=== PATIENT | female | born 1940 | race Caucasian/White ===

== ENCOUNTER 2018-02-26 07:16 | Day surgery (SDC) | payer MEDICARE, OTHER ==
[2018-02-26] MEDS ORDERED: Midazolam 1 MG/ML 2 ML SDV ONE (07:48)
[2018-02-26] MEDS ORDERED: fentaNYL 100 MCG/2 ML SDV ONE (07:48)
[2018-02-26] MEDS ORDERED: Propofol 200 MG/20 ML SDV ONE (07:48)
[2018-02-26] MEDS ORDERED: Sodium Chloride 0.9% 1,000 ML IV SCH (08:00)
[2018-02-26 11:37] VITALS: BP 134/59
--- NOTE | 2018-02-26 13:20 | OR ---
DATE OF PROCEDURE: 02/26/2018 PROCEDURE: Colonoscopy. FINDINGS: Transverse colon polyp, approximately 5 mm, completely removed using cold biopsy forceps. COMPLICATIONS: None. 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 PREOPERATIVE DIAGNOSIS: Screening colonoscopy. POSTOPERATIVE DIAGNOSIS: Screening colonoscopy. RISKS: Risks, benefits, alternatives, and limitations including, but not limited to infection, bleeding, and perforation were explained to the patient, who wished to proceed. PROCEDURE IN DETAIL: The patient was placed in left lateral decubitus position. Digital rectal exam was performed without abnormality. The scope was introduced and advanced atraumatically to the ileocecal valve. The scope was brought back to the ascending, transverse, descending colon, and retroflexed. No abnormalities were noted, except for in the transverse colon, a 5-mm polyp which was completely removed using cold biopsy forceps. The patient tolerated the procedure well. Irineo Dooley MD /[id number]
== END 2018-02-26 11:30 | disposition home or self-care (01) ==
LOC: JP.SDS 07:16
PROVIDERS: ATTEND Surgery
DX: Z12.11 Encounter for screening for malignant neoplasm of colon (principal); D12.3 Benign neoplasm of transverse colon; F17.200 Nicotine dependence, unspecified, uncomplicated; Z88.8 Allergy status to other drugs, medicaments and biological substances
CPT/HCPCS: 45380; J2250; J2704; J3010; J7030; 88305

== ENCOUNTER 2020-01-06 06:14 | Day surgery (SDC) | payer MEDICARE, OTHER ==
[2020-01-06] MEDS ORDERED: Sodium Chloride 0.9% 10 ML Syringe FLUSH PRN (07:30)
[2020-01-06 08:56] VITALS: BP 152/83; PULSE 66
--- NOTE | 2020-01-06 09:52 | OR ---
DATE OF PROCEDURE: 01/06/2020 SURGEON: Xenia Varghese MD POSTOPERATIVE CARE: Postoperative care will be provided mainly at the [address] [place] [address] [facility] in conjunction with [facility]. PREOPERATIVE DIAGNOSIS: Cataract, right eye. POSTOPERATIVE DIAGNOSIS: Cataract, right eye. PROCEDURE: Phacoemulsification with intraocular lens placement, right eye. ANESTHESIA: Topical and intracameral. ESTIMATED BLOOD LOSS: Minimal. COMPLICATIONS: None. PATHOLOGY SPECIMENS: None. SURGICAL FINDINGS: None. INDICATION FOR PROCEDURE: The patient is a 79-year-old female with history of a visually significant cataract in the right eye, which interfered with activities of daily living. This consisted of a nuclear sclerosis cataract. Following careful discussion of the risks, benefits and alternatives to cataract extraction with intraocular lens placement including blindness and , the patient elected to proceed, and informed, written consent was obtained prior to the procedure. DESCRIPTION OF THE PROCEDURE: The patient was previously identified, and a rere placed above the right eye. All sources, including the patient, indicated that the right eye was the correct eye. The patient was subsequently taken to the operating room where standard monitors were applied. The patient was then prepped and draped in the usual sterile fashion for ophthalmic surgery. Attention was first directed at the 12 o'clock position where a paracentesis port was fashioned. Shugar solution followed by Viscoat was instilled into the eye. Attention was then directed to the 8:30 position where a triplanar incision was made in a near-clear manner using a keratome. A continuous capsulorrhexis was then made using a combination of the cystotome and Utrata forceps. Hydrodissection was achieved using a balanced salt solution, and the lens rotated nicely. Phacoemulsification was then done using a modified [id number] technique without complication. Phaco time was CDE. The remaining cortex was removed using the irrigation/aspiration handpiece. Provisc was then instilled into the eye. A Technis lens, model [id number], at 20.0 Diopters was then placed in the capsular bag using an Lanett injector. The remaining viscoelastic was removed using the irrigation/aspiration forceps. All wounds were then checked and found to be watertight. The lid speculum and drapes were removed. Maxitrol ointment was placed in the patient's right eye, and the eye was shielded. The patient tolerated the procedure well. The patient was instructed to follow up tomorrow. All needle and sponge counts were correct at the end of the procedure. Xenia Varghese MD /[id number] MTDD
== END 2020-01-06 09:04 | disposition home or self-care (01) ==
LOC: JP.SDS 06:14
PROVIDERS: ATTEND Ophthalmology
DX: H25.11 Age-related nuclear cataract, right eye (principal); I10 Essential (primary) hypertension; Z88.8 Allergy status to other drugs, medicaments and biological substances
CPT/HCPCS: 66984; V2632

== ENCOUNTER 2020-02-03 08:52 | Day surgery (SDC) | payer MEDICARE, OTHER ==
[2020-02-03] MEDS ORDERED: Sodium Chloride 0.9% 10 ML Syringe FLUSH ONE (09:30)
[2020-02-03 10:12] VITALS: BP 150/78; PULSE 64
--- NOTE | 2020-02-03 16:21 | OR ---
DATE OF PROCEDURE: 02/03/2020 SURGEON: Xenia Varghese MD POSTOPERATIVE CARE: Postoperative care will be provided mainly at the [address] [place] [address] Eye [facility] in conjunction with [facility]. PREOPERATIVE DIAGNOSIS: Cataract, left eye. POSTOPERATIVE DIAGNOSIS: Cataract, left eye. PROCEDURE: Phacoemulsification with intraocular lens placement, left eye. ANESTHESIA: Topical and intracameral. ESTIMATED BLOOD LOSS: Minimal. COMPLICATIONS: None. PATHOLOGY SPECIMENS: None. SURGICAL FINDINGS: None. INDICATION FOR PROCEDURE: The patient is a 79-year-old female with history of a visually significant cataract in the left eye, which interfered with activities of daily living. This consisted of a nuclear sclerosis cataract. Following careful discussion of the risks, benefits and alternatives to cataract extraction with intraocular lens placement including blindness and , the patient elected to proceed, and informed, written consent was obtained prior to the procedure. DESCRIPTION OF THE PROCEDURE: The patient was previously identified, and a rere placed above the left eye. All sources, including the patient, indicated that the left eye was the correct eye. The patient was subsequently taken to the operating room where standard monitors were applied. The patient was then prepped and draped in the usual sterile fashion for ophthalmic surgery. Attention was first directed at the 12 o'clock position where a paracentesis port was fashioned. Shugar solution followed by Viscoat was instilled into the eye. Attention was then directed to the 8:30 position where a triplanar incision was made in a near-clear manner using a keratome. A continuous capsulorrhexis was then made using a combination of the cystotome and Utrata forceps. Hydrodissection was achieved using a balanced salt solution, and the lens rotated nicely. Phacoemulsification was then done using a modified itzmgu-[id number] technique without complication. Phaco time was 7.15 CDE. The remaining cortex was removed using the irrigation/aspiration handpiece. Provisc was then instilled into the eye. A Technis lens, model [id number], at 20.5 diopters was then placed in the capsular bag using an Borden injector. The remaining viscoelastic was removed using the irrigation/aspiration forceps. All wounds were then checked and found to be watertight. The lid speculum and drapes were removed. Maxitrol ointment was placed in the patient's left eye, and the eye was shielded. The patient tolerated the procedure well. The patient was instructed to follow up tomorrow. All needle and sponge counts were correct at the end of the procedure. Xenia Varghese MD /[id number]
== END 2020-02-03 10:15 | disposition home or self-care (01) ==
LOC: JP.SDS 08:52
PROVIDERS: ATTEND Ophthalmology
DX: H25.12 Age-related nuclear cataract, left eye (principal)
CPT/HCPCS: 66984; V2632

== ENCOUNTER 2021-12-17 06:44 | Day surgery (SDC) | payer MEDICARE, OTHER ==
[~2021-12-17 06:44] MED LIST: Dextrose 5%-Lactated Ringers 1,000 ML IV SCH; ceFAZolin 2 GM in Sodium Chloride 0.9% 100 ML IV ONE
[2021-12-17] MEDS ORDERED: Bupivacaine 0.5% 50 ML MDV ONE (06:55)
[2021-12-17] MEDS ORDERED: Lidocaine 1% with EPINEPHrine 1:100,000 50 ML MDV ONE (06:56)
[2021-12-17] MEDS ORDERED: Acetaminophen 500 MG Tab PO ONE (07:00)
[2021-12-17] MEDS ORDERED: fentaNYL 100 MCG/2 ML SDV ONE (07:08)
[2021-12-17] MEDS ORDERED: Propofol 200 MG/20 ML SDV ONE (07:09)
[2021-12-17] MEDS ORDERED: Midazolam 1 MG/ML 2 ML SDV ONE (07:09)
[2021-12-17] MEDS ORDERED: ceFAZolin 2 GM in Premix Bag 1 BAG IV ONE (07:15)
[2021-12-17] MEDS ORDERED: Ondansetron 4 MG/2 ML SDV ONE (08:12)
[2021-12-17] MEDS ORDERED: Ondansetron 4 MG/2 ML SDV IVPUSH ONE (09:30)
[2021-12-17 09:57] VITALS: BP 168/69; PULSE 65
== END 2021-12-17 10:11 | disposition home or self-care (01) ==
LOC: JP.SDS 06:44
PROVIDERS: ATTEND Surgery
DX: C67.1 Malignant neoplasm of dome of bladder (principal); I10 Essential (primary) hypertension; E78.5 Hyperlipidemia, unspecified; R73.9 Hyperglycemia, unspecified
CPT/HCPCS: 77001; C1788; J0690; J1642; J2250; J2405; J2704; J3010; J3490

== ENCOUNTER 2022-04-27 19:51 | Inpatient (IN) | payer MEDICARE, OTHER ==
[2022-04-27] MEDS ORDERED: Sodium Chloride 0.9% 1,000 ML IV SCH (21:30)
[2022-04-27 22:17] LABS: ESTIMATED GFR 32 mL/min (>60)
[2022-04-27 23:18] LABS: CORONAVIRUS COVID-19 NAA NEGATIVE (NEGATIVE)
[2022-04-28] MEDS ORDERED: Water For Injection, Sterile 20 ML ONE (00:14)
[2022-04-28] MEDS ORDERED: cefTRIAXone 2 GM in Sodium Chloride 0.9% 50 ML IV SCH (01:00)
[2022-04-30] MEDS ORDERED: Sodium Chloride 0.9% 10 ML SDV IV PRN (16:11)
[2022-04-30] MEDS ORDERED: Acetaminophen 500 MG Tab PO PRN (16:16)
[2022-04-30] MEDS ORDERED: Docusate Sodium 100 MG Cap PO PRN (16:16)
[2022-04-30] MEDS ORDERED: Magnesium Hydroxide 400 MG/5 ML Susp 30 ML Cup PO PRN (16:16)
[2022-04-30] MEDS ORDERED: Calcium Carbonate 500 MG Tab.Chew PO PRN (16:17)
[2022-04-30] MEDS ORDERED: Ondansetron 4 MG/2 ML SDV IVPUSH PRN (16:17)
[2022-04-30] MEDS ORDERED: Ondansetron 4 MG Tab.DIS PO PRN (16:18)
[2022-04-30] MEDS ORDERED: Sodium Chloride 0.9% 10 ML Syringe IV PRN (16:35)
[2022-04-30] MEDS: Ciprofloxacin 500 MG Tab PO SCH (19:13)
[2022-04-30] MEDS: Magnesium Oxide 400 MG Tab PO SCH (20:03)
[2022-04-30] MEDS ORDERED: Lisinopril 20 MG Tab PO SCH (21:00)
[2022-04-30] MEDS ORDERED: atorvaSTATin 10 MG Tab PO SCH (21:00)
[2022-05-01 07:54] VITALS: BP 161/70; PULSE 87
[2022-05-01] MEDS: Ciprofloxacin 500 MG Tab PO SCH (07:56)
[2022-05-01] MEDS ORDERED: Rivaroxaban 10 MG Tab PO SCH (08:00)
[2022-05-01] MEDS: Magnesium Oxide 400 MG Tab PO SCH (08:03)
[2022-05-01] MEDS ORDERED: Hydrochlorothiazide 25 MG Tab PO SCH (09:00)
== END 2022-05-01 13:35 | disposition home or self-care (01) | DRG 683 ==
LOC: JP.ED 19:51 → JP.ICU 04-28 01:21 → JP.ED 04-28 01:40
PROVIDERS: ADMIT Hospitalist; ATTEND Internal Medicine
DX: N17.9 Acute kidney failure, unspecified (principal); N39.0 Urinary tract infection, site not specified; C67.9 Malignant neoplasm of bladder, unspecified; N18.31 Chronic kidney disease, stage 3a; H54.7 Unspecified visual loss; E86.0 Dehydration; Z98.890 Other specified postprocedural states; R32 Unspecified urinary incontinence; B96.20 Unspecified Escherichia coli [E. coli] as the cause of diseases classified elsewhere; E78.00 Pure hypercholesterolemia, unspecified; I12.9 Hypertensive chronic kidney disease with stage 1 through stage 4 chronic kidney disease, or unspecified chronic kidney disease; E83.42 Hypomagnesemia; Z86.718 Personal history of other venous thrombosis and embolism; D63.1 Anemia in chronic kidney disease; Z86.010 Personal history of colon polyps; M19.90 Unspecified osteoarthritis, unspecified site; Z79.01 Long term (current) use of anticoagulants; Z98.49 Cataract extraction status, unspecified eye; Z79.899 Other long term (current) drug therapy; Z90.710 Acquired absence of both cervix and uterus; Z85.3 Personal history of malignant neoplasm of breast; Z88.8 Allergy status to other drugs, medicaments and biological substances; Z90.11 Acquired absence of right breast and nipple; Z20.822 Contact with and (suspected) exposure to COVID-19
CPT/HCPCS: 0241U; 36415; 80053; 81001; 83605; 85025; 86140; 87040; 87086; 87088; 87186; 97110; 97530; 99284; 99222; 99232; 99238; A9270-GY; J0696; J3370; J7030; J7050